=== PATIENT | female | born 1970 | race Caucasian/White ===

== ENCOUNTER 2018-11-26 10:18 | Inpatient (IN) | payer BC, MEDICAID ==
[2018-11-22 12:17] LABS: BASOPHILS % (AUTO) 0.4 % (0-1); EOSINOPHILS # (AUTO) 0.1 X10'3 (0-0.9); EOSINOPHILS % (AUTO) 1.4 % (0-6); LYMPHOCYTES # (AUTO) 1.8 X10'3 (1.1-4.8); LYMPHOCYTES % (AUTO) 31.4 % (21-51); MEAN CORPUSCULAR HEMOGLOBIN 29.2 PG (27.0-31.0); MEAN CORPUSCULAR HGB CONC 34.6 g/dL (33.0-36.5); MEAN CORPUSCULAR VOLUME 84.4 FL (78-98); MEAN PLATELET VOLUME 8.6 FL (7.4-10.4); MONOCYTES # (AUTO) 0.4 X10'3 (0-0.9); MONOCYTES % (AUTO) 7.4 % (2-12); NEUTROPHILS # (AUTO) 3.4 X10'3 (1.8-7.7); NEUTROPHILS % (AUTO) 59.4 % (42-75); PRE OP HEMATOCRIT 42.3 % (35.0-45.0); PRE OP HEMOGLOBIN 14.6 g/dL (12.0-16.0); PRE OP PLATELET COUNT 295 X10'3 (140-440); RED BLOOD COUNT 5.01 X10'6 (4.20-5.60); RED CELL DISTRIBUTION WIDTH 13.7 % (11.5-14.5)
[2018-11-22 12:26] LABS: PRE OP PROTIME 10.4 SECONDS (9.0-12.0)
[2018-11-22 12:29] LABS: ALBUMIN 4.1 G/DL (3.4-5.0); ALBUMIN/GLOBULIN RATIO 1.1 (1.1-1.5); ALKALINE PHOSPHATASE 124 IU/L (46-116); BLOOD UREA NITROGEN 15 MG/DL (7-18); BUN/CREATININE RATIO 20.8 (6.6-38.0); CALCIUM 9.5 MG/DL (8.5-10.1); CHLORIDE 103 MMOL/L (99-107); CREATININE 0.72 MG/DL (0.40-0.90); PRE OP ALT 33 U/L (30-65); PRE OP ANION GAP 5 (8-16); PRE OP AST 19 U/L (10-37); PRE OP BILIRUB, TOTAL 0.5 MG/DL (0.0-1.0); PRE OP GLUCOSE 101 MG/DL (70-104); PRE OP POTASSIUM 3.7 MMOL/L (3.4-5.1); PRE OP SODIUM 138 MMOL/L (135-145); TOTAL CARBON DIOXIDE 29.9 MMOL/L (24-32); TOTAL PROTEIN 7.9 G/DL (6.4-8.2); eGFR 87 ML/MIN
[2018-11-26] VITALS (7 sets, daily range): BP systolic 104–132; BP diastolic 60–76
[~2018-11-26] VITALS: Ht 180.3 cm; Wt 140.7 kg
[~2018-11-26 10:18] MED LIST: CHOL10002 PO; DOCUMENT DATE & TIME OF BETA-BLOCKER PO ONE; FURO-150 PO; GINK60TA2 PO; LEVO50TA8 PO; MAGN400C PO; NADO20TA PO; POTA8TAB8 PO; [UNRECOGNIZED DRUG - CODE] PO
[2018-11-26] MEDS: ringers solution, lacted 1,000 ML IV SCH ×2 (14:55→15:06)
[2018-11-26] MEDS ORDERED: dextrose 5%-normal saline 1,000 ML IV SCH (15:15)
[2018-11-26] MEDS ORDERED: famotidine 20mg tablet PO ONE (15:15)
[2018-11-26] MEDS ORDERED: vancomycin inj 1,500 MG in normal saline 300ml IV soln IV ONE (15:15)
[2018-11-26] MEDS ORDERED: ringers solution, lacted 1,000 ML IV SCH ×2 (15:15→17:59)
[2018-11-26] MEDS ORDERED: gentamicin 40 MG/1 ML inj ONE (17:01)
[2018-11-26] MEDS ORDERED: ceFAZolin 1000mg inj ONE (17:01)
[2018-11-26] MEDS ORDERED: LIDOcaine 1% 30ml preserv. free vial ONE (17:01)
[2018-11-26] MEDS ORDERED: sevoflurane 250ml liquid IH ONE (17:13)
[2018-11-26] MEDS ORDERED: fentaNYL/PF 50MCG/1 ML 2ML syringe ONE (17:22)
[2018-11-26] MEDS ORDERED: midazolam 2 mg/2 ml injection ONE (17:22)
[2018-11-26] MEDS ORDERED: propofol inj 20 ML IV ONE (17:23)
[2018-11-26] MEDS ORDERED: proCHLORperazine 10 MG/2 ml inj IV PRN (18:00)
[2018-11-26] MEDS ORDERED: morphine 4 MG/ML inj SYRINge IV PRN ×2 (18:00)
[2018-11-26] MEDS ORDERED: ondansetron/PF 4mg/2ml inj IV PRN (18:00)
[2018-11-26] MEDS ORDERED: meperidine/PF 25mg/ml syringe IV PRN ×3 (18:00)
--- NOTE | 2018-11-26 18:38 | NUR ---
Received from OR via , accompanied by Anesthesiologist DR DONAHUE and report given by Anesthesiolgist. AWAKENS TO VOICE. VITALS STABLE. DRESSINGS DI. MARILYN PAIN.
[2018-11-26] MEDS ORDERED: HYDROcodone/acetaminophen 10/325mg tab PO ONE (19:15)
--- NOTE | 2018-11-26 19:38 | NUR ---
AWAKE AND ORIENTED. VITALS STABLE. DRESSING DI. STATES PAIN IMPROVING. HOME WITH HER MOM AT THIS TIME.
== END 2018-11-26 19:38 | disposition home or self-care (01) | DRG 261 ==
LOC: PAS IN 14:26 → UNDOADMIN 14:26 → PAS IN 14:27 → EDSTATUS 17:15
PROVIDERS: ADMIT Specialist; ATTEND Specialist
PROC: 0JWT0PZ Revision of Cardiac Rhythm Related Device in Trunk Subcutaneous Tissue and Fascia, Open Approach (ICD-10-PCS; principal; 2018-11-26 17:13)
DX: T82.118A Breakdown (mechanical) of other cardiac electronic device, initial encounter (principal); Z68.41 Body mass index [BMI] 40.0-44.9, adult; I45.81 Long QT syndrome; E66.01 Morbid (severe) obesity due to excess calories; Y71.3 Surgical instruments, materials and cardiovascular devices (including sutures) associated with adverse incidents; R55 Syncope and collapse; G47.33 Obstructive sleep apnea (adult) (pediatric); E03.9 Hypothyroidism, unspecified; Y92.89 Other specified places as the place of occurrence of the external cause
CPT/HCPCS: Z7506; Z7508; 36415; 80053; 82948; 85025; 85610; 85730; 93005; A4215; A4618; A6449; A7000; G0378; J0690; J1580; J2001; J2175; J2250; J2704; J3010; J3370; J7042; J7120